=== PATIENT | female | born 1985 | race African-American/Black ===

== ENCOUNTER 2018-01-04 17:41 | Emergency (ER) | payer OTHER ==
[2018-01-04] MEDS: KETOROLAC 60 MG/2 ML INJ. IM (18:46)
== END 2018-01-04 19:19 | disposition home or self-care (01) ==
LOC: ER 17:41
DX: S16.1XXA Strain of muscle, fascia and tendon at neck level, initial encounter (principal); V43.52XA Car driver injured in collision with other type car in traffic accident, initial encounter; Y93.I9 Activity, other involving external motion; Y92.410 Unspecified street and highway as the place of occurrence of the external cause; Y99.8 Other external cause status
CPT/HCPCS: 96372; 99283; J1885

== ENCOUNTER 2019-01-10 07:25 | Emergency (ER) | payer BC, OTHER ==
[~2019-01-10] VITALS: Ht 177.8 cm; Wt 102.1 kg
[~2019-01-10 07:25] MED LIST: HYDR-3164 PO
[2019-01-10 07:28] VITALS: BP 127/71
--- NOTE | 2019-01-10 07:47 | PHYS DOC ---
Past Medical History Past Medical History: No Pertinent History Past Surgical History: Other Additional Past Surgical Histo: Knee Alcohol Use: Occasionally Drug Use: None Adult General Chief Complaint Chief Complaint: [facility] HPI Patient is a 33 year old female who presents with complaining of foot laceration. Patient states she stepped on a large piece of broken glass last night at 2300 and had a small laceration to the most left foot with continuous pain. Patient rated her pain as a moderate pain and didn't take any pain medication at home. Patient is not up-to-date with tetanus immunization. Review of Systems Review of Systems Constitutional: Denies fever or chills [] Eyes: Denies change in visual acuity, redness, or eye pain [] HENT: Denies nasal congestion or sore throat [] Respiratory: Denies cough or shortness of breath [] Cardiovascular: No additional information not addressed in HPI [] GI: Denies abdominal pain, nausea, vomiting, bloody stools or diarrhea [] : Denies dysuria or hematuria [] Musculoskeletal: Denies back pain, reports joint pain [] Integument: Denies rash or skin lesions [] Neurologic: Denies headache, focal weakness or sensory changes [] Endocrine: Denies polyuria or polydipsia [] All other systems were reviewed and found to be within normal limits, except as documented in this note. Current Medications Current Medications Current Medications Medications (Trade) Dose Ordered Sig/Arielle Start Time Stop Time Status Last Admin Dose Admin Diphtheria/ Tetanus/Acell Pertussis (Boostrix) 0.5 ml ONCE ONCE 01/10/19 08:00 01/10/19 08:01 DC 01/10/19 07:55 0.5 ML Ibuprofen (Motrin) 800 mg 1X ONCE 01/10/19 08:00 01/10/19 08:01 DC 01/10/19 07:52 800 MG Allergies Allergies Allergies Coded Allergies Type Severity Reaction Last Updated Verified No Known Drug Allergies 01/04/18 No Physical Exam Physical Exam Constitutional: Well developed, well nourished, mild distress, non-toxic appearance. [] HENT: Normocephalic, atraumatic. Eyes: PERRLA, EOMI, conjunctiva normal, no discharge. [] Neck: Normal range of motion, no tenderness, supple, no stridor. [] Cardiovascular:Heart rate regular rhythm, no murmur [] Lungs & Thorax: Bilateral breath sounds clear to auscultation [] Skin: Warm, dry, no erythema, no rash. [] Extremities: 0.5 cm superficial laceration of left foot on front forefoot without active bleeding or foreign body sensation, no cyanosis, no clubbing, ROM intact, no edema. [] Neurologic: Alert and oriented X 3, normal motor function, normal sensory function, no focal deficits noted. [] Psychologic: Affect normal, judgement normal, mood normal. [] Current Patient Data Vital Signs Vital Signs Date Time Temp Pulse Resp B/P (MAP) Pulse Ox O2 Delivery O2 Flow Rate FiO2 01/10/19 07:28 97.8 81 18 127/71 (89) 98 Room Air 97.8 EKG EKG [] Radiology/Procedures Radiology/Procedures [] Course & Med Decision Making Course & Med Decision Making Evaluation of patient in ER showed 33-year-old female patient presented to ER with laceration with protruding glass in left foot. Sensation was repaired with Dermabond and Steri-Strip and tetanus immunization was given. Dragon Disclaimer Dragon Disclaimer This electronic medical record was generated, in whole or in part, using a voice recognition dictation system. Departure Departure Impression: Primary Impression: Foot laceration Disposition: 01 HOME, SELF-CARE (at 0755) Condition: STABLE Referrals: HAIDER GONZALEZ (PCP) Patient Instructions: Laceration Care, Adult, Tissue Adhesive Wound Care Scripts Tramadol Hcl (ULTRAM) 50 Mg Tablet 50 MG PO Q6HRS PRN for PAIN, #14 TAB 0 Refills Prov: JESS TORRES MD 01/10/19 Laceration Repair Lac Repair Indication: Left foot laceration Procedure: The patient was placed in the appropriate position 0.5 cm laceration of left foot was repaired with Dermabond and Steri-Strip. Total repaired wound length: 0.5 cm Other Items: [OTHER ITEMS] The patient tolerated the procedure well. Complications: None. Problem Qualifiers Primary Impression: Foot laceration Encounter type: initial encounter Laterality: left Qualified Codes: S91.312A - Laceration without foreign body, left foot, initial encounter JESS TORRES MD Jan 10, 2019 07:47
[2019-01-10] MEDS ORDERED: TRAM-48 PO (07:56)
[2019-01-10] MEDS ORDERED: IBUPROFEN 400 MG TABLET. PO ONE (08:00)
[2019-01-10] MEDS ORDERED: DIPHTH,PERTUSS(ACELL),TET TOX 0.5 ML DISP.SYRIN. VAX IM ONE (08:00)
== END 2019-01-10 08:00 | disposition home or self-care (01) ==
LOC: ER 07:25
DX: S91.312A Laceration without foreign body, left foot, initial encounter (principal); W25.XXXA Contact with sharp glass, initial encounter; Y93.89 Activity, other specified; Y92.89 Other specified places as the place of occurrence of the external cause; Y99.8 Other external cause status
CPT/HCPCS: 12001; 90471; 90715; 99283

== ENCOUNTER 2019-09-22 13:01 | Emergency (ER) | payer BC ==
[~2019-09-22] VITALS: Ht 180.3 cm; Wt 97.0 kg
[~2019-09-22 13:01] MED LIST changes: +TRAM-48 PO
[2019-09-22] MEDS ORDERED: KETOROLAC 30 MG/ML VIAL. IVP ONE (15:00)
[2019-09-22 15:07] LABS: BILIRUBIN,URINE NEGATIVE (NEG); CLARITY,URINE CLEAR; COLOR,URINE YELLOW; NITRITE,URINE NEGATIVE (NEG); PH,URINE 5.5; PROTEIN,URINE NEGATIVE (NEG-TRACE); UROBILINOGEN,URINE 0.2 mg/dL (0.2 mg/dL)
[2019-09-22 15:13] LABS: SQUAMOUS EPITHELIAL CELL,UR FEW /LPF
[2019-09-22 15:16] LABS: BARBITURATES NEG (NEG); BENZODIAZEPINES NEG (NEG); CANNABINOIDS POS (NEG); COCAINE NEG (NEG); METHADONE NEG (NEG); OPIATES NEG (NEG); PHENCYCLIDINE NEG (NEG)
[2019-09-22 15:17] LABS: BACTERIA,URINE FEW /HPF (0-FEW); RBC,URINE TNTC /HPF (0-2); WBC,URINE 0 /HPF (0-4)
[2019-09-22 15:20] LABS: AMPHETAMINE/METHAMPHETAMINE NEG (NEG)
[2019-09-22 16:06] LABS: BASO % 0 % (0-3); EOS % 0 % (0-3); HEMATOCRIT 40.2 % (36.0-47.0); HEMOGLOBIN 13.6 g/dL (12.0-15.5); LYMPH # 1.6 x10^3/uL (1.0-4.8); LYMPH % 20 % (24-48); MEAN CORPUSCULAR HEMOGLOBIN 30 pg (25-35); MEAN CORPUSCULAR HGB CONC 34 g/dL (31-37); MEAN CORPUSCULAR VOLUME 89 fL (79-100); MONO # 0.5 x10^3/uL (0.0-1.1); MONO % 6 % (0-9); NEUT % 74 % (31-73); PLATELET COUNT 411 x10^3/uL (140-400); RED BLOOD COUNT 4.51 x10^6/uL (3.50-5.40); RED CELL DISTRIBUTION WIDTH 15.6 % (11.5-14.5); WHITE BLOOD COUNT 8.2 x10^3/uL (4.0-11.0)
[2019-09-22 16:30] LABS: CALCIUM 9.2 mg/dL (8.5-10.1); CREATININE 0.9 mg/dL (0.6-1.0); GFR 87.3; POTASSIUM 4.3 mmol/L (3.5-5.1)
[2019-09-22 16:34] LABS: ALBUMIN 3.4 g/dL (3.4-5.0); MAGNESIUM 1.7 mg/dL (1.8-2.4); TOTAL BILIRUBIN 0.3 mg/dL (0.2-1.0); TOTAL PROTEIN 6.7 g/dL (6.4-8.2)
[2019-09-22] MEDS ORDERED: IOHEXOL 300 MG/ML 100ML VIAL. IV ONE (16:45)
[2019-09-22] MEDS ORDERED: CONTRAST GIVEN. MC PRN (16:45)
--- NOTE | 2019-09-22 17:01 | RAD ---
CT ABD PELV W/ IV CONTRST ONLY Indication: Abdominal pain for months Technique: Postcontrast CT imaging was performed of the abdomen and pelvis, multiplanar reconstruction images submitted. No oral contrast was given. One or more of the following individualized dose reduction techniques were utilized for this examination: 1. Automated exposure control 2. Adjustment of the mA and/or kV according to patient size 3. Use of iterative reconstruction technique. Comparison: None Findings: There is some motion degradation. There is mild atelectasis of the visualized lung bases bilaterally and trace dependent pleural effusions at the lung bases bilaterally. No focal abnormality is identified of the spleen, pancreas, liver. Gallbladder is present without obvious abnormality by CT. Both kidneys enhance without hydronephrosis. There is no adrenal nodularity. Accurate evaluation of bowel somewhat limited without oral contrast. Bowel is not significantly dilated. Normal caliber appendix is believed to be visualized without adjacent inflammatory change. There is heterogeneity of the uterus. There are also foci foci of hypodensity of the adnexal regions bilaterally, on the right about 2 cm in size and on the left grossly estimated 2.2 cm in size although difficult to discern from adjacent normal ovary and internally more heterogeneous density characteristics. There is minimal nonspecific free fluid in the pelvis. No free air is identified. Bowel is not significantly dilated, cannot exclude small bowel wall thickening in the left abdomen. IMPRESSION: 1. There could be a degree of small bowel thickening in the left abdomen, enteritis not excluded although limited accurate characterization without oral contrast. There is no convincing CT evidence of acute appendicitis. 2. There are some hypodense foci of the adnexal regions bilaterally otherwise difficult to accurately characterize, may be due to component of cysts although more heterogeneous and complex-appearing on the left, minimal nonspecific free fluid in the pelvis. There is nonspecific heterogeneity of the uterus. 3. There are trace pleural effusions at the visualized lung bases bilaterally with adjacent atelectasis. Electronically signed by: Eduardo Child MD (09/22/2019 4:58 PM) [id number]
--- NOTE | 2019-09-22 18:18 | PHYS DOC ---
Past Medical History Past Medical History: No Pertinent History (BUCKY MEHTA APRN) Past Surgical History: Other Additional Past Surgical Histo: Knee (BUCKY MEHTA APRN) Smoking Status: Never Smoker Alcohol Use: Occasionally Drug Use: None (BUCKY MEHTA APRN) Attending Signature I have participated in the care of this patient and I have reviewed and agree with all pertinent clinical information above including history, exam, and recommendations. (XOCHILT RUELAS MD) Adult General Chief Complaint Chief Complaint: ABDOMINAL PAIN HPI HPI Patient is a 34 year old female who presents to the ED today complaining of 7 out of 10 generalized abdominal pain that has been going on intermittently for months. Patient reports following up with her own PCP. Patient denies any exacerbating or relieving factors to her pain. Describes the pain as sharp she states the PCP sent her to the ED today to have a CAT scan. (BUCKY MEHTA APRN) Review of Systems Review of Systems Constitutional: Denies fever or chills [] Eyes: Denies change in visual acuity, redness, or eye pain [] HENT: Denies nasal congestion or sore throat [] Respiratory: Denies cough or shortness of breath [] Cardiovascular: No additional information not addressed in HPI [] GI: Reports generalized abdominal pain, nausea, vomiting, bloody stools or diarrhea [] : Denies dysuria or hematuria [] Musculoskeletal: Denies back pain or joint pain [] Integument: Denies rash or skin lesions [] Neurologic: Denies headache, focal weakness or sensory changes [] All other systems were reviewed and found to be within normal limits, except as documented in this note. (BUCKY MEHTA APRN) Current Medications Current Medications Current Medications Medications (Trade) Dose Ordered Sig/Arielle Start Time Stop Time Status Last Admin Dose Admin Info (CONTRAST GIVEN -- Rx MONITORING) 1 each PRN DAILY PRN 09/22/19 16:45 09/22/19 19:13 DC Iohexol (Omnipaque 300 Mg/ml) 75 ml 1X ONCE 09/22/19 16:45 09/22/19 16:46 DC 09/22/19 16:50 75 ML Ketorolac Tromethamine (Toradol 30mg Vial) 30 mg 1X ONCE 09/22/19 15:00 09/22/19 15:01 DC 09/22/19 15:57 30 MG (XOCHILT RUELAS MD) Allergies Allergies Allergies Coded Allergies Type Severity Reaction Last Updated Verified No Known Drug Allergies 01/04/18 No (XOCHILT RUELAS MD) Physical Exam Physical Exam Constitutional: Well developed, well nourished, no acute distress, non-toxic appearance. [] HENT: Normocephalic, atraumatic, bilateral external ears normal, oropharynx moist, no oral exudates, nose normal. [] Eyes: PERRLA, EOMI, conjunctiva normal, no discharge. [] Neck: Normal range of motion, no tenderness, supple, no stridor. [] Cardiovascular:Heart rate regular rhythm, no murmur [] Lungs & Thorax: Bilateral breath sounds clear to auscultation [] Abdomen: Bowel sounds normal, soft, no tenderness, no masses, no pulsatile masses. [] Pelvic exam External pelvic appears normal, cervix is visualized, no CMT, no adnexal tenderness, small amount of bright red blood noted in the vaginal vault, patient is on her menstrual cycle Skin: Warm, dry, no erythema, no rash. [] Back: No tenderness, no CVA tenderness. [] Extremities: No tenderness, no cyanosis, no clubbing, ROM intact, no edema. [] Neurologic: Alert and oriented X 3, normal motor function, normal sensory function, no focal deficits noted. [] Psychologic: Affect normal, judgement normal, mood normal. [] (BUCKY MEHTA APRN) Current Patient Data Vital Signs Vital Signs Date Time Temp Pulse Resp B/P (MAP) Pulse Ox O2 Delivery O2 Flow Rate FiO2 09/22/19 19:03 80 20 134/92 (106) 99 Room Air 09/22/19 15:08 98.1 98.1 (XOCHILT RUELAS MD) Lab Values Laboratory Tests Test 09/22/19 14:49 09/22/19 14:51 09/22/19 15:54 Urine Collection Type Unknown Urine Color Yellow Urine Clarity Clear Urine pH 5.5 Urine Specific [place] >=1.030 Urine Protein Negative mg/dL (NEG-TRACE) Urine Glucose (UA) Negative mg/dL (NEG) Urine Ketones (Stick) 40 mg/dL (NEG) Urine Blood Large (NEG) Urine Nitrite Negative (NEG) Urine Bilirubin Negative (NEG) Urine Urobilinogen Dipstick 0.2 mg/dL (0.2 mg/dL) Urine Leukocyte Esterase Negative (NEG) Urine RBC Tntc /HPF (0-2) Urine WBC 0 /HPF (0-4) Urine Squamous Epithelial Cells Few /LPF Urine Bacteria Few /HPF (0-FEW) Urine Mucus Marked /LPF Urine Opiates Screen Neg (NEG) Urine Methadone Screen Neg (NEG) Urine Barbiturates Neg (NEG) Urine Phencyclidine Screen Neg (NEG) Urine Amphetamine/Methamphetamine Neg (NEG) Urine Benzodiazepines Screen Neg (NEG) Urine Cocaine Screen Neg (NEG) Urine Cannabinoids Screen Pos (NEG) Urine Ethyl Alcohol Neg (NEG) POC Urine HCG, Qualitative Hcg negative (Negative) White Blood Count 8.2 x10^3/uL (4.0-11.0) Red Blood Count 4.51 x10^6/uL (3.50-5.40) Hemoglobin 13.6 g/dL (12.0-15.5) Hematocrit 40.2 % (36.0-47.0) Mean Corpuscular Volume 89 fL (79-100) Mean Corpuscular Hemoglobin 30 pg (25-35) Mean Corpuscular Hemoglobin Concent 34 g/dL (31-37) Red Cell Distribution Width 15.6 % (11.5-14.5) H Platelet Count 411 x10^3/uL (140-400) H Neutrophils (%) (Auto) 74 % (31-73) H Lymphocytes (%) (Auto) 20 % (24-48) L Monocytes (%) (Auto) 6 % (0-9) Eosinophils (%) (Auto) 0 % (0-3) Basophils (%) (Auto) 0 % (0-3) Neutrophils # (Auto) 6.0 x10^3/uL (1.8-7.7) Lymphocytes # (Auto) 1.6 x10^3/uL (1.0-4.8) Monocytes # (Auto) 0.5 x10^3/uL (0.0-1.1) Eosinophils # (Auto) 0.0 x10^3/uL (0.0-0.7) Basophils # (Auto) 0.0 x10^3/uL (0.0-0.2) Sodium Level 139 mmol/L (136-145) Potassium Level 4.3 mmol/L (3.5-5.1) Chloride Level 105 mmol/L (98-107) Carbon Dioxide Level 24 mmol/L (21-32) Anion Gap 10 (6-14) Blood Urea Nitrogen 10 mg/dL (7-20) Creatinine 0.9 mg/dL (0.6-1.0) Estimated GFR (Cockcroft-Gault) 87.3 BUN/Creatinine Ratio 11 (6-20) Glucose Level 81 mg/dL (70-99) Calcium Level 9.2 mg/dL (8.5-10.1) Magnesium Level 1.7 mg/dL (1.8-2.4) L Total Bilirubin 0.3 mg/dL (0.2-1.0) Aspartate Amino Transferase (AST) 11 U/L (15-37) L Alanine Aminotransferase (ALT) 16 U/L (14-59) Alkaline Phosphatase 87 U/L (46-116) Total Protein 6.7 g/dL (6.4-8.2) Albumin 3.4 g/dL (3.4-5.0) Albumin/Globulin Ratio 1.0 (1.0-1.7) Lipase 126 U/L (73-393) Ethyl Alcohol Level < 10 mg/dL (0-10) Laboratory Tests 09/22/19 15:54 Laboratory Tests 09/22/19 15:54 Microbiology 09/22/19 Wet Prep - Final, Complete (XOCHILT RUELAS MD) EKG EKG [] (BUCKY MEHTA APRN) Radiology/Procedures Radiology/Procedures []PROCEDURE: CT ABD PELV W/ IV CONTRST ONLY CT ABD PELV W/ IV CONTRST ONLY Indication: Abdominal pain for months Technique: Postcontrast CT imaging was performed of the abdomen and pelvis, multiplanar reconstruction images submitted. No oral contrast was given. One or more of the following individualized dose reduction techniques were utilized for this examination: 1. Automated exposure control 2. Adjustment of the mA and/or kV according to patient size 3. Use of iterative reconstruction technique. Comparison: None Findings: There is some motion degradation. There is mild atelectasis of the visualized lung bases bilaterally and trace dependent pleural effusions at the lung bases bilaterally. No focal abnormality is identified of the spleen, pancreas, liver. Gallbladder is present without obvious abnormality by CT. Both kidneys enhance without hydronephrosis. There is no adrenal nodularity. Accurate evaluation of bowel somewhat limited without oral contrast. Bowel is not significantly dilated. Normal caliber appendix is believed to be visualized without adjacent inflammatory change. There is heterogeneity of the uterus. There are also foci foci of hypodensity of the adnexal regions bilaterally, on the right about 2 cm in size and on the left grossly estimated 2.2 cm in size although difficult to discern from adjacent normal ovary and internally more heterogeneous density characteristics. There is minimal nonspecific free fluid in the pelvis. No free air is identified. Bowel is not significantly dilated, cannot exclude small bowel wall thickening in the left abdomen. IMPRESSION: 1. There could be a degree of small bowel thickening in the left abdomen, enteritis not excluded although limited accurate characterization without oral contrast. There is no convincing CT evidence of acute appendicitis. 2. There are some hypodense foci of the adnexal regions bilaterally otherwise difficult to accurately characterize, may be due to component of cysts although more heterogeneous and complex-appearing on the left, minimal nonspecific free fluid in the pelvis. There is nonspecific heterogeneity of the uterus. 3. There are trace pleural effusions at the visualized lung bases bilaterally with adjacent atelectasis. Electronically signed by: Darron Art MD (09/22/2019 4:58 PM) [id number] DICTATED and SIGNED BY: DARRON ART MD DATE: 09/22/191657 PROCEDURE: PELVIS W/TV Examination: Ultrasound pelvis HISTORY: History of pelvic pain COMPARISON: None available FINDINGS: The uterus measures 9.6 x 5.8 x 5.2 cm. Endometrium measures 9.6 mm in thickness. The right ovary measures 4.4 x 2.9 x 3.0 cm. The left ovary measures 4.4 x 2.3 x 1.5 cm. Blood flow identified in the right and left ovaries. There is a small 1.8 cm fibroid identified in the uterus. 2 cm cystic structure identified in the right ovary. Small free fluid identified in the left adnexa. Bilateral ovarian follicles identified. IMPRESSION: 1. Small 1.8 cm uterine fibroid. 2. A 2 cm cystic structure identified in the right ovary likely a follicle or cyst. Electronically signed by: Torsten Aguillon MD (09/22/2019 6:24 PM) [id number] DICTATED and SIGNED BY: TORSTEN AGUILLON MD DATE: 09/22/19 182 (BUCKY MEHTA APRN) Course & Med Decision Making Course & Med Decision Making Pertinent Labs and Imaging studies reviewed. (See chart for details) This is a 34-year-old female patient presenting to the ED today complaining of generalized abdominal pain for months. Negative urine hCG, urine analysis is negative for any acute findings, labs were no acute findings, CT of the abdomen and take was noted for possible adnexal cyst. Pelvic ultrasound was ordered. OB ultrasound interpreted by radiologist was noted for a small 1.8 cm uterine fibroid and a 2 cm cystic structure identified in the right ovary likely a follicle or cyst. Discharged to home, follow up with OB. (BUCKY MEHTA APRN) Dragon Disclaimer Dragon Disclaimer This electronic medical record was generated, in whole or in part, using a voice recognition dictation system. (BUCKY MEHTA APRN) Departure Departure Impression: Primary Impression: Uterine fibroid Additional Impression: Ovarian cyst Disposition: HOME, SELF-CARE Condition: STABLE Referrals: HAIDER GONZALEZ (PCP) LISSETH RICHARDSON MD Follow-up with the [employer] in 2-4 weeks Patient Instructions: Ovarian Cyst, [id number], Uterine Fibroid, [id number] Additional Instructions: You were evaluated in the emergency room for chronic abdominal pain, your ultrasound was noted for uterine fibroid as well as a cyst on your right ovary. You can follow-up with her own [employer] or the provided [employer] in the next 2-4 weeks. You can take Tylenol or Motrin as needed for pain. Problem Qualifiers Primary Impression: Uterine fibroid Uterine leiomyoma location: unspecified location Qualified Codes: D25.9 - Leiomyoma of uterus, unspecified Additional Impression: Ovarian cyst Laterality: right Qualified Codes: N83.201 - Unspecified ovarian cyst, right side BUCKY MEHTA APRN Sep 22, 2019 18:18 XOCHILT RUELAS MD Sep 22, 2019 20:05
--- NOTE | 2019-09-22 18:27 | RAD ---
Examination: Ultrasound pelvis HISTORY: History of pelvic pain COMPARISON: None available FINDINGS: The uterus measures 9.6 x 5.8 x 5.2 cm. Endometrium measures 9.6 mm in thickness. The right ovary measures 4.4 x 2.9 x 3.0 cm. The left ovary measures 4.4 x 2.3 x 1.5 cm. Blood flow identified in the right and left ovaries. There is a small 1.8 cm fibroid identified in the uterus. 2 cm cystic structure identified in the right ovary. Small free fluid identified in the left adnexa. Bilateral ovarian follicles identified. IMPRESSION: 1. Small 1.8 cm uterine fibroid. 2. A 2 cm cystic structure identified in the right ovary likely a follicle or cyst. Electronically signed by: Torsten Aguillon MD (09/22/2019 6:24 PM) [id number]
[2019-09-22 19:03] VITALS: BP 134/92
[2019-09-23 18:09] LABS: GC PROBE Negative (Negative)
== END 2019-09-22 19:03 | disposition home or self-care (01) ==
LOC: ER 13:01
DX: N83.201 Unspecified ovarian cyst, right side (principal); D25.9 Leiomyoma of uterus, unspecified; R10.84 Generalized abdominal pain; Z98.890 Other specified postprocedural states
CPT/HCPCS: 36415; 74177; 76830; 76856; 80053; 80307; 81001; 81025; 83690; 83735; 85025; 87491; 87591; 96374; 99285; G0480; J1885; Q0111; Q9967

== ENCOUNTER 2020-07-02 09:46 | Emergency (ER) | payer BC ==
[~2020-07-02] VITALS: Ht 180.3 cm; Wt 86.0 kg
[2020-07-02] MEDS ORDERED: IV NORMAL SALINE 1000ML BAG 1,000 ML IV ONE (11:45)
[2020-07-02] MEDS ORDERED: KETOROLAC 30 MG/ML VIAL. IV ONE (11:45)
[2020-07-02] MEDS ORDERED: PROCHLORPERAZINE 10 MG/2 ML VIAL. IV ONE (11:45)
[2020-07-02] MEDS ORDERED: methylPREDNISolone SOD SUCC PF 125 MG/2 ML VIAL. IV ONE (11:45)
--- NOTE | 2020-07-02 11:46 | ED.ADGEN ---
Past Medical History Past Medical History: Migraines Past Surgical History: Other Additional Past Surgical Histo: Knee,laproscopy for fibroids, D&C Smoking Status: Never Smoker Alcohol Use: Occasionally Drug Use: None General Adult EDM: Chief Complaint: HEADACHE HPI: HPI: Patient is a 35 year old AA female who presents to the emergency department with complaints of a migraine headache to the right posterior head that began at 730 this morning. Patient states that she has been dealing with daily migraines for several months now. She had MRI by her doctor a few months ago. She states with migraines she has photosensitivity, occasionally she sees floaters, and so metimes her fingers begin to tingle. She denies any fever, cough, shortness of breath, chest pain, body aches, fatigue, nausea, vomiting, diarrhea, abdominal pain, confusion, or weakness. She states that the pain makes her pulse increase. She currently rates her pain a 6 out of 10 on the pain scale, she denies any alleviating factors, light makes the pain worse. Patient reports her last menstrual cycle was on May [id number], she takes continuous control and denies any concerns of . Review of Systems: Review of Systems: Complete ROS is negative unless otherwise noted in HPI. Current Medications: Current Medications Medications (Trade) Dose Ordered Sig/Arielle Start Time Stop Time Status Last Admin Dose Admin Ketorolac Tromethamine (Toradol 30mg Vial) 30 mg 1X ONCE 07/02/20 11:45 07/02/20 11:46 DC 07/02/20 12:40 30 MG Methylprednisolone Sodium Succinate (SOLU-Medrol 125MG VIAL) 125 mg 1X ONCE 07/02/20 11:45 07/02/20 11:46 DC 07/02/20 12:41 125 MG Prochlorperazine Edisylate (Compazine) 10 mg 1X ONCE 07/02/20 11:45 07/02/20 11:46 DC 07/02/20 12:37 10 MG Sodium Chloride 1,000 ml @ 1,000 mls/hr 1X ONCE 07/02/20 11:45 07/02/20 12:44 DC 07/02/20 12:35 1,000 MLS/HR Allergies: Allergies: Allergies Coded Allergies Type Severity Reaction Last Updated Verified No Known Drug Allergies 07/02/20 No Physical Exam: PE: See Above Constitutional: Well developed, well nourished, no acute distress, non-toxic oliva earance. [] HENT: Normocephalic, atraumatic, bilateral external ears normal, nose normal. [] Eyes: PERRLA, EOMI, conjunctiva normal, no discharge. [] Neck: Normal range of motion, no stridor. [] Cardiovascular:Heart rate regular tachycardic rhythm rate 108 and regular Lungs & Thorax: Respirations even and unlabored, no retractions, no respiratory distress Skin: Warm, dry, no erythema, no rash. [] Extremities: No cyanosis, ROM intact, no edema. [] Neurologic: Alert and oriented X 3, normal motor, no sensory, ambulates with steady gait, no focal deficits noted. [] Psychologic: Affect normal, judgement normal, mood normal. [] Current Patient Data: Labs: Laboratory Tests Test 07/02/20 11:46 POC Urine HCG, Qualitative Hcg negative (Negative) Vital Signs: Vital Signs Date Time Temp Pulse Resp B/P (MAP) Pulse Ox O2 Delivery O2 Flow Rate FiO2 07/02/20 13:00 98 18 100 07/02/20 10:40 98.5 153/93 (113) Room Air 98.5 EKG: EKG: [] Heart Score: Risk Factors: Risk Factors: DM, Current or recent (<one month) smoker, HTN, HLP, family history of CAD, obesity. Risk Scores: Score 0 - 3: 2.5% MACE over next 6 weeks - Discharge Home Score 4 - 6: 20.3% MACE over next 6 weeks - Admit for Clinical Observation Score 7 - 10: 72.7% MACE over next 6 weeks - Early Invasive Strategies Radiology/Procedures: Radiology/Procedures: [] Course & Med Decision Making: Course & Med Decision Making Pertinent Labs and Imaging studies reviewed. (See chart for details) 35-year-old female presents emergency room for a migraine. She reported a history of migraines. Patient states that the symptoms are like her typical migraines. She was given a liter of normal saline, 10 mg of Compazine, 30 mg of IV Toradol, and 125 mg of Medrol. She reported complete resolution of her pain after these medications. Prescription written for Fioricet. Patient instructed to follow-up with her primary care doctor next week. Return to the ER if symptoms worsen. Patient verbalized an understanding of home care, medications, follow-up, and return to ED instructions and was in agreement with the plan of care. [] Eugene Disclaimer: Eugene Disclaimer: This electronic medical record was generated, in whole or in part, using a voice recognition dictation system. Departure Departure Impression: Primary Impression: Migraine headache Disposition: 01 DC HOME SELF CARE/HOMELESS Condition: STABLE Referrals: HAIDER GONZALEZ (PCP) Patient Instructions: Recurrent Migraine Headache, Gaxh-to-Abfz Additional Instructions: Fill prescription and use it as directed. Home to rest in a cool dark room. Follow-up with your primary care doctor next week. Return to the ER if symptoms worsen. Scripts Butalb/Acetaminophen/Caffeine ([id number] [id number]) 1 Each Tablet 1-2 EACH PO Q4HRS PRN for PAIN MDD 6 tabs for 3 Days, #18 TAB 0 Refills Prov: HOMAR PACHEOC YARD DEMURRAGE CLERK 07/02/20 Problem Qualifiers Primary Impression: Migraine headache Migraine type: unspecified Status migrainosus presence: without status migrainosus Intractability: not intractable Qualified Codes: G43.909 - Migraine, unspecified, not intractable, without status migrainosus HOMAR PACHECO YARD DEMURRAGE CLERK Jul 02, 2020 11:46
[2020-07-02] MEDS ORDERED: BUTA1TAB23 PO (13:43)
[2020-07-02 13:48] VITALS: BP 123/66
== END 2020-07-02 13:55 | disposition home or self-care (01) ==
LOC: ER 09:46
DX: G43.909 Migraine, unspecified, not intractable, without status migrainosus (principal)
CPT/HCPCS: 81025; 96361; 96374; 96375; 99285; J0780; J1885; J2930; J7030